=== PATIENT | female | born 1980 | race Native Hawaiian/Other Pacific Islander ===

== ENCOUNTER 2021-01-13 13:53 | Emergency (ER) | payer OTHER ==
[~2021-01-13] VITALS: Ht 160 cm; Wt 65.8 kg
[2021-01-13 14:22] VITALS: BP 118/45
== END 2021-01-13 17:27 | disposition home or self-care (01) ==
LOC: ER 13:53
DX: K14.6 Glossodynia (principal); Z72.0 Tobacco use